=== PATIENT | male | born 1950 | race Two or more races ===

== ENCOUNTER → 2017-09-26 | Day surgery (SDC) | payer MEDICARE ==
[2017-09-23 10:09] LABS: BASOPHILS # (AUTO) 0.1 (0.0-0.1); BASOPHILS % 0.8 % (0.0-1.0); EOSINOPHILS # (AUTO) 0.1 (0.0-0.4); EOSINOPHILS % 1.4 % (0.0-6.0); HEMATOCRIT 46.8 % (38.2-49.6); HEMOGLOBIN 16.1 g/dL (14.0-18.0); LYMPHOCYTES # (AUTO) 2.5 (1.0-3.2); LYMPHOCYTES % 39.3 % (18.0-39.1); MEAN CORPUSCULAR HEMOGLOBIN 32.6 pg (28-32); MEAN CORPUSCULAR HGB CONC 34.4 g/dL (31-35); MEAN CORPUSCULAR VOLUME 94.7 fL (81-99); MONOCYTES # (AUTO) 0.8 (0.2-0.8); MONOCYTES % 12.6 % (4.4-11.3); NEUTROPHILS # (AUTO) 2.9 (2.1-6.9); PLATELET COUNT 229 x10e3/uL (140-360); RED BLOOD COUNT 4.94 x10e6/uL (4.3-5.7); RED CELL DISTRIBUTION WIDTH 15.3 % (11.7-14.4)
[2017-09-23 10:26] LABS: ALANINE AMINOTRANSFERASE 34 IU/L (0-55); ALBUMIN 4.2 g/dL (3.5-5.0); ALKALINE PHOSPHATASE 78 IU/L (40-150); ANION GAP 16.8 mmol/L (8-16); BLOOD UREA NITROGEN 13 mg/dL (7-26); BUN/CREATININE RATIO 11 (6-25); CALCIUM 9.9 mg/dL (8.4-10.2); CARBON DIOXIDE 27 mmol/L (22-29); CHLORIDE 109 mmol/L (98-107); CREATININE, SERUM 1.19 mg/dL (0.72-1.25); EST GLOMERULAR FILTRATION RATE > 60 ML/MIN (60-); GLUCOSE 118 mg/dL (74-118); POTASSIUM 3.8 mmol/L (3.5-5.1); SODIUM 149 mmol/L (136-145)
--- NOTE | 2017-09-23 11:15 | Diagnostic Imaging Report ---
PROCEDURE: X-RAY CHEST, TWO VIEWS COMPARISON: None. INDICATIONS: PREOPERATIVE FOR PROSTATE SURGERY FINDINGS: Lungs are well-inflated. No focal airspace consolidation, pleural effusion, or pneumothorax. Blunting of the left lateral costophrenic sulcus likely represents postoperative pleural thickening or prominent extrapleural fat. Tortuosity of the thoracic aorta with an otherwise normal cardiomediastinal contour. No acute osseous abnormality. Multiple surgical clips project over the upper abdomen on the lateral radiograph. Surgical anchors project over the right humeral head. Cervical spine fusion hardware partially visualized. CONCLUSION: No acute cardiopulmonary abnormality. Dictated by: Herbert Woods M.D. on 09/23/2017 at 11:15 Electronically approved by: Herbert Woods M.D. on 09/23/2017 at 11:15
[~2017-09-26] MED LIST: AMBIEN10 MG PO; BELLADONNA/OPIUM 60 MG SUPP PR ONE; CEFAZOLIN SOD 1 GM VIAL ONE; CLONAZEPAM1 MG PO; DEXAMETHASONE SOD PHOS INJ 4 MG/ML VIAL ONE; EPHEDRINE SULFATE INJ 50 MG/10 ML SYR ONE; FENTANYL CITRATE/PF 100MCG/2 ML INJ ONE; FLOMAX0.4 MG PO; IOPAMIDOL 300MG/ML 50ML INFUS..BTL IV ONE; LIDOCAINE HCL 2% LOCAL INJ 5 ML SDV VIAL INJ ONE; MIDAZOLAM HCL 2 MG/2 ML VIAL ONE; MIRTAZAPINE15 MG PO; MORPHINE SULFATE 2 MG/ML SYR ONE; NORVASC5 MG PO; ONDANSETRON HCL INJ 2 MG/ML VIAL ONE; PROPOFOL IV EMULSION 10 MG/ML 20 ML VIAL ONE; SEVOFLURANE INHAL SOLN 250 ML PEN BTL ONE; TRAMADOL HCL 50 MG TAB ONE
--- OUTSIDE RECORDS SUMMARY | 2017-09-26 06:55 | XMS REPORT ---
Author Author [facility] Address Unknown Phone Unavailable Care Team Providers Care Efficiency Clerk Name Role Phone MANOHAR STEPHENSON Unavailable Unavailable Problems This patient has no known problems. Allergies, Adverse Reactions, Alerts This patient has no known allergies or adverse reactions. Medications This patient has no known medications. Results Test Description Test Time Test Comments Text Results Atomic Results Result Comments CHEST [address] [address] Patient Name: DARRON STRONG SR MR #: [id number] : 1950 Age/Sex: 67/M Req #: [id number] Adm Physician: Ordered by: MANOHAR STEPHENSON MD Report #: [id number] Location: OR Room/Bed: Procedure: [id number] DX/CHEST 2 VIEWS Exam Date: 09/23/17 Exam Time: 1025 REPORT STATUS: Signed PROCEDURE: X-RAY CHEST, TWO VIEWS COMPARISON: None. INDICATIONS: PREOPERATIVE FOR PROSTATE SURGERY FINDINGS: Lungs are well-inflated. No focal airspace consolidation , pleural effusion, or pneumothorax. Blunting of the left lateral costophrenic sulcus likely represents postoperative pleural thickening or prominent extrapleural fat. Tortuosity of the thoracic aorta with an otherwise normal cardiomediastinal contour. No acute osseous abnormality. Multiple surgical clips project over the upper abdomen on the lateral radiograph. Surgical anchors project over the right humeral head. Cervical spine fusion hardware partially visualized. CONCLUSION: No acute cardiopulmonary abnormality. Dictated by: Neha Pearce M.D. on 2017 at 11:15 Electronically approved by: Neha Pearce M.D. on 09/23/2017 at 11:15 Dictated By: NEHA PEARCE MD [id number] Transcribed By: RHONDA on 09/23/17 111 COPY TO: MANOHAR STEPHENSON MD
--- NOTE | 2017-09-26 13:31 | Diagnostic Imaging Report ---
PROCEDURE: X-RAY RETROGRADE PYELOGRAM COMPARISON: None. INDICATIONS: BILATERAL RETROGRADE PYELOGRAM FINDINGS: Multiple intraoperative spot images of the abdomen and pelvis were obtained. There is retrograde cannulization of both ureters with contrast injection. The left calices are unremarkable. The inferior calyxes of the right kidney are normal. There is dilation and blunting of the upper calyxes in the upper pole of the right kidney. Cumulative fluoro time: 18 seconds Cumulative area dose product: 140.58 cGycm2 Cumulative air kerma: 3.77 mGy CONCLUSION: Dilation and blunting of the upper calyxes in the upper pole of the right kidney. This can be seen in mild hydronephrosis or papillary necrosis. Dictated by: Will Brennan M.D. on 09/26/2017 at 13:31 Electronically approved by: Will Brennan M.D. on 09/26/2017 at 13:31
--- NOTE | 2017-09-26 14:12 | Operative Report ---
DATE OF PROCEDURE: September 26, 2017 PREOPERATIVE DIAGNOSIS: Cancer of the prostate with urethral stricture. POSTOPERATIVE DIAGNOSIS: 1. Cancer of the prostate. 2. Bladder neck contracture. 3. Urethral stricture. OPERATION PERFORMED: 1. Ultrasound of prostate. 2. Cystoscopy with urethral dilatation. 3. Transurethral incision of bladder neck contracture. 4. Bilateral retrograde pyelograms. 5. Transurethral resection of prostate with biopsy. ANESTHESIA: Staff. Anesthesia is general. PROCEDURE: With the patient under satisfactory general anesthesia, the patient was placed in the supine position on the operating table. Legs were placed on stirrups. At this point, the transurethral ultrasound was passed into the rectum, and examination of the prostate was done transrectally. A large previously done transurethral resection of the prostate was seen with a big defect found. There was minimal prostatic tissue left. The seminal vesicles were nondilated. The bladder contained no stones. It is noted that there was some tissue posteriorly and to the right. Otherwise there were no areas of hypoechoic areas. At this point, the transrectal probe was removed, followed by the patient being prepped with Betadine soap and solution and draped sterilely in the usual manner. Cystoscope was passed per urethra. A soft bulbar urethral stenosis was found, dilated over the scope, and the scope was then introduced into the prostatic fossa. A pinpoint bladder neck contracture was identified. At this point, the cystoscope was removed, dilation was done to the bladder neck with Lorna sounds to size 28, and then the continuous resectoscope was placed in with the button electrode. Button electrode was used to incise the bladder neck and open it up. Once that was done, the button was exchanged for the loop, and multiple curettages of the prostate were done. These were then Ellik'd out and sent in for pathological specimen. As dictated above, the patient has prostate cancer found incidentally during his TURP 3 months ago. His PSA at that time was 1.1. Once that was done, the button electrode was reintroduced. A couple of little bleeders were electrofulgurated, and further incision of the bladder neck was done. The resectoscope was then removed and replaced with the cystoscope. Using the number 8 cone-tipped ureteral catheter, contrast media was injected retrograde up to both kidneys. No obstruction was identified. No stones or filling defects were seen. At this point, the instruments were removed. The Lorna sounds were reintroduced up to size 30 with no problems, and then a number 18-Palestinian Suarez catheter was passed per urethra into the bladder and left indwelling. Patient was then taken to the recovery room in satisfactory condition. DISCHARGE INSTRUCTION: The patient was given Cipro to take b.i.d. and tramadol 50 mg to take 1 to 2 tablets as needed for pain. He will be seen tomorrow morning where the Suarez catheter will be removed. Once that is done, then the patient will be followed with another PSA. We will await the pathology report to see if there is any tumor left behind. He had a single chip with 50%, 4+3 cancer. At this point, if the patient has a negative biopsy at this time, then he will be followed in 3 to 4 months. We will do a flow test, do a cystoscopy to follow up his urethral stricture, and dilate him as necessary. Job#: [id number] EMILI
== END | disposition home or self-care (01) ==
LOC: OR 06:53
PROVIDERS: ATTEND Urology
DX: C61 Malignant neoplasm of prostate (principal); N35.9 Urethral stricture, unspecified; N32.0 Bladder-neck obstruction; I10 Essential (primary) hypertension; I49.3 Ventricular premature depolarization; Z01.810 Encounter for preprocedural cardiovascular examination; Z01.812 Encounter for preprocedural laboratory examination; Z01.818 Encounter for other preprocedural examination
CPT/HCPCS: 36415; 52005; 52630; 71046; 74420; 76872; 76942; 80053; 85025; 87086; 88305; 93005; C1758; J0690; J1100; J2001; J2250; J2270; J2405; Q9967

== ENCOUNTER 2018-03-31 09:58 | Emergency (ER) | payer MEDICARE ==
[~2018-03-31] VITALS: Ht 170.2 cm; Wt 68.9 kg
[~2018-03-31 09:58] MED LIST changes: -BELLADONNA/OPIUM 60 MG SUPP PR ONE; -CEFAZOLIN SOD 1 GM VIAL ONE; -DEXAMETHASONE SOD PHOS INJ 4 MG/ML VIAL ONE; -EPHEDRINE SULFATE INJ 50 MG/10 ML SYR ONE; -FENTANYL CITRATE/PF 100MCG/2 ML INJ ONE; -IOPAMIDOL 300MG/ML 50ML INFUS..BTL IV ONE; -LIDOCAINE HCL 2% LOCAL INJ 5 ML SDV VIAL INJ ONE; -MIDAZOLAM HCL 2 MG/2 ML VIAL ONE; -MORPHINE SULFATE 2 MG/ML SYR ONE; -ONDANSETRON HCL INJ 2 MG/ML VIAL ONE; -PROPOFOL IV EMULSION 10 MG/ML 20 ML VIAL ONE; -SEVOFLURANE INHAL SOLN 250 ML PEN BTL ONE; -TRAMADOL HCL 50 MG TAB ONE
[2018-03-31] MEDS ORDERED: ONDANSETRON HCL INJ 2 MG/ML VIAL IV STA (10:38)
[2018-03-31] MEDS ORDERED: MORPHINE SULFATE INJ 4 MG/ML INJ IV STA (10:38)
[2018-03-31] MEDS ORDERED: SODIUM CHLORIDE 0.9% 1000ML 1,000 ML IV STA (10:38)
[2018-03-31 11:45] LABS: BASOPHILS % 0.7 % (0.0-1.0); EOSINOPHILS # (AUTO) 0.1 (0.0-0.4); EOSINOPHILS % 2.1 % (0.0-6.0); HEMATOCRIT 42.4 % (38.2-49.6); HEMOGLOBIN 15.2 g/dL (14.0-18.0); LYMPHOCYTES # (AUTO) 1.4 (1.0-3.2); MEAN CORPUSCULAR HEMOGLOBIN 32.9 pg (28-32); MEAN CORPUSCULAR HGB CONC 35.8 g/dL (31-35); MEAN CORPUSCULAR VOLUME 91.8 fL (81-99); MONOCYTES # (AUTO) 0.8 (0.2-0.8); MONOCYTES % 12.4 % (4.4-11.3); NEUTROPHILS # (AUTO) 3.8 (2.1-6.9); NEUTROPHILS % 62.5 % (38.7-80.0); PLATELET COUNT 248 x10e3/uL (140-360); RED BLOOD COUNT 4.62 x10e6/uL (4.3-5.7); RED CELL DISTRIBUTION WIDTH 13.8 % (11.7-14.4)
--- NOTE | 2018-03-31 12:55 | Diagnostic Imaging Report ---
EXAMINATION: CHEST 2 VIEWS INDICATION: Fall \S\ORDER PLACED BY MD \S\[id number] \S\1210 \S\Y COMPARISON: None FINDINGS: PA and lateral views TUBES and LINES: None. LUNGS: Limited by low lung volumes. Minimal haziness of the left costophrenic angle. PLEURA: No significant pleural effusion or pneumothorax. HEART AND MEDIASTINUM: The cardiomediastinal silhouette is unremarkable. BONES AND SOFT TISSUES: No acute osseous lesion. Right humeral head anchor screws. Soft tissues are unremarkable. UPPER ABDOMEN: No free air under the diaphragm. Left upper abdomen surgical clips. IMPRESSION: Minimal haziness of the left costophrenic angle, likely subsegmental atelectasis. Otherwise, no acute thoracic abnormality. Signed by: Dr. Edwar Ga MD on 03/31/2018 12:51 PM
--- NOTE | 2018-03-31 12:58 | Diagnostic Imaging Report ---
Exams: Head and cervical spine CTs without IV contrast History: Fall, pain Comparison studies: None Technique: Axial images were obtained from the brain and cervical spine. Coronal and sagittal images reconstructed from the axial data. Dose modulation, iterative reconstruction, and/or weight based adjustment of the mA/kV was utilized to reduce the radiation dose to as low as reasonably achievable. Intravenous contrast: None Findings: Head CT: Scalp: No abnormalities. Bones: No fractures, blastic or lytic lesions. Extra-axial spaces: No masses. No fluid collections. Brain sulci: Appropriate for age. Ventricles: Normal in size and configuration. No hydrocephalus. Parenchyma: No abnormal densities. No masses, acute hemorrhage, acute or chronic vascular insults. Sellar/suprasellar region: No abnormalities. Craniocervical junction: The foramen magnum is patent. No Chiari one malformation. Cervical spine CT: Fractures: No acute fractures. Chronic appearing superior T2 endplate deformity results in only minimal height loss. Soft tissues: Mild nonspecific stranding in the deep left cervical soft tissues could reflect soft tissue contusion in the context of acute trauma in the appropriate clinical setting. Postsurgical changes are noted additional consideration. Atlantoaxial articulation: Intact. Alignment: Normal cervical lordosis. Minimal anterolisthesis of C7 on T1. Cervicomedullary junction: No abnormalities. The foramen magnum is patent. Vertebrae: No infection or neoplasm. Surgical changes: Anterior cervical discectomy and fusion from C4 to C7 (ACDF) with solid interbody fusion. No evidence of hardware failure or hardware loosening. Degenerative changes: Ossification which extends from the C3-C4 disc space along the anterior C3 vertebral body indents the prevertebral soft tissues. Mildly degenerated disks from C2 to C4 and from C7 to the included superior T3 level. Small disc osteophyte complex at C3-C4 and posterior osteophyte at C4-C5 indents the thecal sac but does not result in significant canal stenosis. Varying degrees of mild to moderate multilevel facet arthrosis. Mild foraminal stenosis bilaterally at C3-C4 (left greater than right) on the left at C4-C5, bilaterally at C6-C7 due to uncovertebral and facet arthrosis. Moderate to severe foraminal stenosis on the left at C7-T1 due to minimal C7 listhesis, uncovertebral arthrosis and facet arthrosis. Incidental findings: Bilateral intraocular lens replacements. Atherosclerotic calcifications in the carotid siphons and intradural vertebral arteries. IMPRESSION: Head CT: No acute abnormalities. Cervical spine CT: 1. No acute fracture or acute subluxation. 2. Small chronic superior T2 endplate compression deformity. 3. Surgical changes of C4-C7 ACDF. 4. Degenerative changes as described. 5. Nonspecific stranding in the left cervical soft tissues. Consider soft tissue contusion or surgical changes in the appropriate clinical setting. Please note, cannot adequately evaluate ligament, spinal cord and or vascular abnormalities on the basis of this examination. Signed by: Dr. Herbert Daly M.D. on 03/31/2018 12:55 PM
[2018-03-31 13:31] LABS: BILIRUBIN,URINE NEGATIVE (NEGATIVE); CLARITY,URINE CLEAR (CLEAR); COLOR,URINE YELLOW (YELLOW); KETONES,URINE NEGATIVE (NEGATIVE); LEUKOCYTE ESTERASE ,URINE NEGATIVE (NEGATIVE); NITRITE,URINE NEGATIVE (NEGATIVE); PROTEIN,URINE DIPSTICK NEGATIVE (NEGATIVE); URINE UROBILINOGEN 0.2 mg/dL (0.2 - 1)
[2018-03-31 13:42] LABS: AMORPHOUS SEDIMENT,URINE MODERATE (FEW); EPITHELIAL CELLS,URINE FEW /LPF
[2018-03-31] MEDS ORDERED: SODIUM CHLORIDE 0.9% 1000ML 1,000 ML IV ONE (15:00)
[2018-03-31] MEDS ORDERED: KETOROLAC TROMETHAMINE 30 MG/ML VIAL IV STA (15:28)
[2018-03-31] MEDS ORDERED: CYCLOBENZAPRINE HCL 10 MG TAB PO ONE (15:30)
[2018-03-31 16:09] LABS: INR 0.94; PARTIAL THROMBOPLASTIN TIME 30.9 seconds (23.8-35.5); PROTHROMBIN TIME 13.4 seconds (11.9-14.5)
[2018-03-31 16:18] LABS: ALANINE AMINOTRANSFERASE 26 IU/L (0-55); ALBUMIN 4.2 g/dL (3.5-5.0); ALBUMIN/GLOBULIN RATIO 1.1 (0.8-2.0); ALKALINE PHOSPHATASE 62 IU/L (40-150); ANION GAP 16.2 mmol/L (8-16); BLOOD UREA NITROGEN 11 mg/dL (7-26); BUN/CREATININE RATIO 11 (6-25); CALCIUM 8.8 mg/dL (8.4-10.2); CARBON DIOXIDE 24 mmol/L (22-29); CHLORIDE 104 mmol/L (98-107); CREATINE KINASE 109 IU/L (30-200); CREATININE, SERUM 1.02 mg/dL (0.72-1.25); EST GLOMERULAR FILTRATION RATE > 60 ML/MIN (60-); GLUCOSE 101 mg/dL (74-118); POTASSIUM 3.2 mmol/L (3.5-5.1); SODIUM 141 mmol/L (136-145)
[2018-03-31 17:01] VITALS: BP 137/95
== END 2018-03-31 17:57 | disposition home or self-care (01) ==
LOC: ER 09:58
DX: S00.83XA Contusion of other part of head, initial encounter (principal); S10.83XA Contusion of other specified part of neck, initial encounter; M62.838 Other muscle spasm; W01.198A Fall on same level from slipping, tripping and stumbling with subsequent striking against other object, initial encounter; Y92.002 Bathroom of unspecified non-institutional (private) residence as the place of occurrence of the external cause
CPT/HCPCS: 36415; 70450; 71046; 72125; 80053; 81001; 82550; 82553; 84484; 85025; 85610; 85730; 93005; 99284; J1885; J2270; J2405; J7030

== ENCOUNTER → 2018-06-18 | Day surgery (SDC) | payer MEDICARE ==
[2018-06-11 11:39] LABS: BASOPHILS % 0.7 % (0.0-1.0); EOSINOPHILS # (AUTO) 0.1 (0.0-0.4); EOSINOPHILS % 2.2 % (0.0-6.0); HEMATOCRIT 44.4 % (38.2-49.6); LYMPHOCYTES # (AUTO) 1.9 (1.0-3.2); LYMPHOCYTES % 34.3 % (18.0-39.1); MEAN CORPUSCULAR HEMOGLOBIN 31.9 pg (28-32); MEAN CORPUSCULAR HGB CONC 33.8 g/dL (31-35); MEAN CORPUSCULAR VOLUME 94.5 fL (81-99); MONOCYTES # (AUTO) 0.9 (0.2-0.8); MONOCYTES % 15.6 % (4.4-11.3); NEUTROPHILS # (AUTO) 2.6 (2.1-6.9); NEUTROPHILS % 46.8 % (38.7-80.0); PLATELET COUNT 222 x10e3/uL (140-360); RED CELL DISTRIBUTION WIDTH 13.9 % (11.7-14.4)
[2018-06-11 12:30] LABS: ALANINE AMINOTRANSFERASE 27 IU/L (0-55); ALBUMIN 4.1 g/dL (3.5-5.0); ALKALINE PHOSPHATASE 73 IU/L (40-150); ANION GAP 14.5 mmol/L (8-16); BLOOD UREA NITROGEN 14 mg/dL (7-26); BUN/CREATININE RATIO 15 (6-25); CALCIUM 9.7 mg/dL (8.4-10.2); CARBON DIOXIDE 25 mmol/L (22-29); CHLORIDE 106 mmol/L (98-107); CREATININE, SERUM 0.96 mg/dL (0.72-1.25); EST GLOMERULAR FILTRATION RATE > 60 ML/MIN (60-); GLUCOSE 86 mg/dL (74-118); POTASSIUM 3.5 mmol/L (3.5-5.1); SODIUM 142 mmol/L (136-145)
--- NOTE | 2018-06-11 15:35 | Diagnostic Imaging Report ---
EXAMINATION: CHEST 2 VIEWS COMPARISON: Chest radiograph 03/31/18. FINDINGS: TUBES and LINES: None. LUNGS: Lungs are well inflated. Lungs are clear. There is no evidence of pneumonia or pulmonary edema. PLEURA: No pleural effusion or pneumothorax. HEART AND MEDIASTINUM: The cardiomediastinal silhouette is unremarkable. BONES AND SOFT TISSUES: No acute osseous lesion. Soft tissues are unremarkable. Cervical spine fixation hardware. UPPER ABDOMEN: No free air under the diaphragm. Surgical clips are present in the posterior upper abdomen. IMPRESSION: No acute radiographic abnormality. Signed by: Dr. Temi Crawley MD on 06/11/2018 3:31 PM
[~2018-06-18] MED LIST changes: +BELLADONNA/OPIUM 30 MG SUPP RC ONE; +CEFAZOLIN SOD 1 GM/D5W 50ML 50 ML IV ONE; +EPHEDRINE SULFATE INJ 50 MG/10 ML SYR ONE; +FENTANYL CITRATE/PF 100MCG/2 ML INJ ONE; +IOPAMIDOL 610MG/1ML 300 MG/ML VIAL IV ONE; +LIDOCAINE HCL 2% LOCAL INJ 5 ML SDV VIAL INJ ONE; +ONDANSETRON HCL INJ 2 MG/ML VIAL ONE; +PROPOFOL IV EMULSION 10 MG/ML 20 ML VIAL ONE; +SEVOFLURANE INHAL SOLN 250 ML PEN BTL ONE; +TRAMADOL HCL 50 MG TAB ONE
[2018-06-18 15:15] VITALS: BP 145/84
--- NOTE | 2018-06-18 15:40 | Diagnostic Imaging Report ---
PROCEDURE: X-RAY RETROGRADE PYELOGRAM COMPARISON: 09/26/2017 retrograde study INDICATIONS: RETROGRADE PYELOGRAMS FINDINGS: Multiple intraoperative spot images of the abdomen and pelvis were obtained. Contrast was injected per the penile urethra. A mild narrowing of the posterior urethra is noted. Bladder has a normal contour. There is retrograde cannulization of both ureters with contrast injection. The upper pole calyces on the right side are slightly blunted. Right proximal ureteral filling defect is a bubble. Blunting of the upper pole calyces on the left are also noted. There is adequate drainage of contrast from both ureters and calyces. Cumulative fluoro time: 34 seconds Cumulative area dose product: 262.53 cGycm2 Cumulative air kerma: 7.35 mGy CONCLUSION: Retrograde pyelogram as described above. Thomas Bhakta D.O. Dictated by: Thomas Bhakta D.O. on 06/18/2018 at 15:50 Electronically approved by: Thomas Bhakta D.O. on 06/18/2018 at 15:50
--- NOTE | 2018-06-18 16:22 | Operative Report ---
DATE OF PROCEDURE: June 18, 2018 PREOPERATIVE DIAGNOSIS: Bladder neck contracture. POSTOPERATIVE DIAGNOSIS: Bladder neck contracture. OPERATION PERFORMED: Cystoscopy, retrograde transurethral incision of bladder neck, and retrograde urethrogram which was the one that I did first. ANESTHESIOLOGIST: Dr. Stark. ANESTHESIA: General. BRIEF HISTORY: This is a 68-year-old male with history of prostate cancer, having undergone treatment. Had a TURP for diagnosis first. Has been followed since then. His PSAs are unchanged, very, very low. He has had difficulty urinating here recently. Finally, cystoscopy was done in the office, and it was found that he had a pinpoint bladder neck contracture. He is brought in at this time for an incision. FINDINGS: Pinpoint bladder neck contracture, trabeculated bladder. Ureteral orifice in normal position. Clear efflux bilaterally. Retrograde pyelogram shows no filling defect, no obstruction and no hydronephrosis. PROCEDURE: With the patient under satisfactory general anesthesia, the patient was placed in the supine position on the operating table. Legs were placed on stirrups. Genitalia were then prepped with Betadine soap and solution and draped in the usual manner. First, approximately 20 mL of contrast media was injected retrograde. Extra void taken. It is found that he has a very tight, contracted prostatic fossa. The verumontanum is filled in. Otherwise, no other obstructions to the urethra. At this point, the 22-Sinhala cystourethroscope was passed per urethra into the prostatic fossa. It is noted immediately that it is very contracted, the entire fossa, and there is a pinpoint hole. The Bugbee electrode was used at this time to incise the bladder neck contracture enough to pass a 22 scope. At that point, further incisions were made laterally on the 3 and 9 o'clock positions. At this point, the number 8 cone-tipped ureteral catheter was placed into the bladder. Incision was made at the bladder neck. At this point, number 8 cone-tipped ureteral catheter was passed into the bladder, and contrast media was injected retrograde up to both kidneys. No obstruction was seen. Bladder was then emptied. The instrument was removed and replaced by the continuous-flow resectoscope sheath with the button electrode on the bipolar mode. Further incision was made in the bladder neck. Electrovaporization of some tissue was also done to allow the prostatic fossa to open up, and bleeding points were electrocoagulated. At this point, we checked for bleeders again. There being none, the instruments were removed. A 20-Sinhala Suarez catheter was passed per urethra easily into the bladder. B and O suppository was placed in the rectum. The patient was then taken to the recovery room in satisfactory condition. I discussed the case with the patient's family. He will be in the office tomorrow morning to remove the Suarez catheter. We will stop giving him the Flomax at that point. He can have regular diet and activity as tolerated. Resume all his other medications. Job#: [id number]
== END | disposition home or self-care (01) ==
LOC: OR 11:13
PROVIDERS: ATTEND Urology
DX: N32.0 Bladder-neck obstruction (principal); N32.89 Other specified disorders of bladder; Z85.46 Personal history of malignant neoplasm of prostate; G47.33 Obstructive sleep apnea (adult) (pediatric); I10 Essential (primary) hypertension; Z88.8 Allergy status to other drugs, medicaments and biological substances; Z01.810 Encounter for preprocedural cardiovascular examination; Z01.812 Encounter for preprocedural laboratory examination; Z01.818 Encounter for other preprocedural examination
CPT/HCPCS: 36415; 52005; 52500; 71046; 74420; 80053; 85025; 93005; C1758; J0690; J2001; J2405; J2704; Q9967